=== PATIENT | female | born 1980 | race African-American/Black ===

== ENCOUNTER 2016-12-18 22:54 | Emergency (ER) | payer MEDICARE, MEDICAID ==
--- NOTE | 2016-12-18 23:56 | ER Document Report ---
ED General - General Chief Complaint: Decreased LOC Stated Complaint: ALTERED LEVEL OF CONSCIENCE Time seen by provider: 23:56 Mode of Arrival: Stretcher Information source: Emergency Med Personnel TRAVEL OUTSIDE OF THE [place] IN LAST 30 DAYS: No - HPI Patient complains to provider of: difficult to arouse Onset: Just prior to arrival Onset/Duration: Sudden Quality of pain: No pain Associated symptoms: None Exacerbated by: Denies Relieved by: Denies Similar symptoms previously: Yes Recently seen / treated by doctor: No Notes: Patient is a 36-year-old female presenting to the emergency room via EMS for difficulty to arouse with altered mental status, patient reports that she took one dose of all of her medications at the same time this evening and shortly thereafter became very sleepy, she takes Loprox, clobetasol, omeprazole, Nucynta , Topamax, Elavil, Valium, Cymbalta, she states the she is supposed to take a dose of all of these medications at night, and when she does so she sleeps quite heavily, she is supposed worsen sleep apnea at night as well, apparently her mother became concerned because she could not wake the patient, patient denies suicidal or homicidal ideation - Related Data Allergies/Adverse Reactions: latex [Latex] Allergy (Intermediate, Verified 06/08/16 07:12) SKIN IRRITATION, ITCHING Past Medical History - General Information source: Patient, Emergency Med Personnel - Social History Smoking Status: Unknown if Ever Smoked Family History: DM, Hypertension - Past Medical History Cardiac Medical History: Denies: Hx Coronary Artery Disease, Hx Heart Attack, Hx Hypertension Pulmonary Medical History: Reports: Hx Asthma Denies: Hx Bronchitis, Hx COPD, Hx Pneumonia Neurological Medical History: Denies: Hx Cerebrovascular Accident, Hx Seizures Endocrine Medical History: Denies: Hx Diabetes Mellitus Type 2 GI Medical History: Reports: Hx Gastroesophageal Reflux Disease, Hx Hiatal Hernia Musculoskeltal Medical History: Reports Hx Arthritis Past Surgical History: Reports: Hx Bowel Surgery - hernia, bowel obstruction, colectomy, Hx Gastric Bypass Surgery. Denies: Hx Hysterectomy - Immunizations Immunizations up to date: Yes Hx Diphtheria, Pertussis, Tetanus Vaccination: Yes - < 5 years Hx Pneumococcal Vaccination: 08/13/11 Review of Systems - Review of Systems Constitutional: No symptoms reported EENT: No symptoms reported Cardiovascular: No symptoms reported Respiratory: No symptoms reported Gastrointestinal: No symptoms reported Genitourinary: No symptoms reported Female Genitourinary: No symptoms reported Musculoskeletal: No symptoms reported Skin: No symptoms reported Hematologic/Lymphatic: No symptoms reported Neurological/Psychological: See HPI -: Yes All other systems reviewed and negative Physical Exam - Vital signs Vitals: Temp Pulse Resp BP Pulse Ox 97.8 F 107 H 22 H 132/72 H 100 12/18/16 23:04 12/18/16 23:04 12/18/16 23:04 12/18/16 23:04 12/18/16 23:04 Interpretation: Tachycardic - General General appearance: Other - Somnolent but arousable In distress: None - HEENT Head: Normocephalic, Atraumatic Eyes: Normal Conjunctiva: Normal Extraocular movements intact: Yes Eyelashes: Normal Pupils: PERRL Mucous membranes: Dry - Respiratory Respiratory status: No respiratory distress Chest status: Nontender Breath sounds: Normal Chest palpation: Normal - Cardiovascular Rhythm: Regular, Tachycardia Heart sounds: Normal auscultation Murmur: No - Abdominal Inspection: Morbidly Obese Distension: No distension Bowel sounds: Normal Tenderness: Nontender Organomegaly: No organomegaly - Back Back: Normal, Nontender - Extremities General upper extremity: Normal inspection, Nontender, Normal color, Normal ROM , Normal temperature General lower extremity: Normal inspection, Nontender, Normal color, Normal ROM , Normal temperature, Normal weight bearing. No: Lorena's sign - Neurological Neuro grossly intact: Yes Cognition: Normal Caryl Coma Scale Eye Opening: To Voice [place] Coma Scale Verbal: Oriented Caryl Coma Scale Motor: Obeys Commands [place] Coma Scale Total: 14 Speech: Normal Motor strength normal: LUE, RUE, LLE, RLE Sensory: Normal - Psychological Associated symptoms: Normal affect, Normal mood - Skin Skin Temperature: Warm Skin Moisture: Dry Skin Color: Normal Course - Re-evaluation Re-evalutation: 12/19/16 03:41 Patient is somnolent but arousable, vital signs have been stable, I believe her symptoms are related to polypharmacy, patient was advised to take her medications in the space out dosing rather than all at the same time at night, follow up with her primary care provider or return if symptoms worsen, patient acknowledges understanding and agreement with this plan - Vital Signs Vital signs: Temp Pulse Resp BP Pulse Ox 97.8 F 107 H 26 H 129/77 H 100 02/05/17 23:04 12/18/16 23:04 12/19/16 02:01 12/19/16 02:01 12/19/16 02:01 - Laboratory Result Diagrams: 12/19/16 00:20 12/19/16 00:20 Laboratory results interpreted by me: 12/19/16 12/19/16 12/19/16 00:20 00:20 01:20 Hgb 11.0 L Hct 34.0 L RDW 16.4 H Plt Count 105 L Alkaline Phosphatase 161 H Urine Urobilinogen 2.0 H Salicylates < 1.0 L Acetaminophen < 10 L Discharge - Discharge Clinical Impression: Somnolence, Polypharmacy Condition: Stable Disposition: HOME, SELF-CARE Additional Instructions: Follow up with your primary care provider in one to 2 days. Return to the emergency room immediately if symptoms worsen or any additional concerns.
[2016-12-19 00:29] LABS: ABSOLUTE EOSINOPHILS # (AUTO) 0.1 10^3/uL (0.0-0.6); ABSOLUTE MONOCYTES (AUTO) 0.6 10^3/uL (0.1-1.4); ABSOLUTE NEUT (AUTO) 4.3 10^3/uL (1.7-8.2); BASOPHILS % (AUTO) 0.7 % (0-2); EOSINOPHILS % (AUTO) 1.7 % (0-6); LYMPHOCYTES % (AUTO) 16.5 % (13-45); MEAN CORPUSCULAR HEMOGLOBIN 28.6 pg (27.0-33.4); MEAN CORPUSCULAR HGB CONC 32.4 g/dL (32.0-36.0); MEAN CORPUSCULAR VOLUME 88 fl (80-97); MONOCYTES % (AUTO) 9.5 % (3-13); RED BLOOD COUNT 3.86 10^6/uL (3.72-5.28); RED CELL DISTRIBUTION WIDTH 16.4 % (11.5-14.0); SEGMENTED NEUTROPHILS % (AUTO) 71.6 % (42-78)
[2016-12-19 00:41] LABS: ALANINE AMINOTRANSFERASE 31 U/L (9-52); ALBUMIN 3.8 g/dL (3.5-5.0); ALKALINE PHOSPHATASE 161 U/L (38-126); ANION GAP 12 (5-19); ASPARTATE AMINO TRANSFERASE 26 U/L (14-36); BILIRUBIN,TOTAL 0.4 mg/dL (0.2-1.3); BLOOD UREA NITROGEN 12 mg/dL (7-20); CALCIUM 8.5 mg/dL (8.4-10.2); CARBON DIOXIDE 22 mmol/L (22-30); CHLORIDE 107 mmol/L (98-107); CREATININE RESULT 0.68 mg/dL (0.52-1.25); GLUCOSE 101 mg/dL (75-110); POTASSIUM 3.6 mmol/L (3.6-5.0); SODIUM 140.8 mmol/L (137-145); TOTAL PROTEIN 6.6 g/dL (6.3-8.2)
[2016-12-19 00:44] LABS: ALCOHOL < 10 mg/dL (NONE DETECTED)
[2016-12-19 01:44] LABS: APPEARANCE,URINE SLIGHTLY-CLOUDY; BILIRUBIN,URINE NEGATIVE (NEGATIVE); GLUCOSE, URINE NEGATIVE (NEGATIVE); KETONES,URINE NEGATIVE (NEGATIVE); LEUKOCYTE ESTERASE,URINE NEGATIVE (NEGATIVE); NITRITE,URINE NEGATIVE (NEGATIVE); PROTEIN,URINE NEGATIVE (NEGATIVE); URINE SPECIFIC GRAVITY 1.019
[2016-12-19 01:59] LABS: URINE BARBITURATES SCREEN NEGATIVE; URINE METHADONE SCREEN NEGATIVE; URINE OPIATES LOW NEGATIVE; URINE PHENCYCLIDINE SCREEN NEGATIVE
[2016-12-19 04:31] VITALS: BP 148/91
== END 2016-12-19 05:10 | disposition home or self-care (01) ==
LOC: ER 22:54
DX: R41.82 Altered mental status, unspecified (principal); R40.0 Somnolence; Z91.040 Latex allergy status; Z79.899 Other long term (current) drug therapy; Z98.84 Bariatric surgery status
CPT/HCPCS: 36415; 80053; 80307; 81001; 84703; 85025; 99285

== ENCOUNTER → 2017-01-10 | Outpatient (CLI) | payer MEDICARE, MEDICAID | LOC: WI 08:29 | PROVIDERS: ATTEND Internal Medicine Medical Oncology | DX: N63 Unspecified lump in breast (principal) | CPT/HCPCS: 76641; G0204; 77066 ==

== ENCOUNTER → 2017-05-17 | Outpatient (CLI) | payer MEDICARE, MEDICAID ==
[2017-05-17 10:15] LABS: HEMATOCRIT 37.8 % (36.0-47.0); HEMOGLOBIN 11.8 g/dL (12.0-15.5); HGB HCT DIFFERENCE -2.4; MEAN CORPUSCULAR HEMOGLOBIN 26.9 pg (27.0-33.4); MEAN CORPUSCULAR HGB CONC 31.1 g/dL (32.0-36.0); MEAN CORPUSCULAR VOLUME 87 fl (80-97); RED BLOOD COUNT 4.37 10^6/uL (3.72-5.28); RED CELL DISTRIBUTION WIDTH 17.6 % (11.5-14.0)
[2017-05-17 10:34] LABS: ALANINE AMINOTRANSFERASE 42 U/L (9-52); ALBUMIN 3.7 g/dL (3.5-5.0); ALKALINE PHOSPHATASE 150 U/L (38-126); ANION GAP 8 (5-19); ASPARTATE AMINO TRANSFERASE 25 U/L (14-36); BILIRUBIN,DIRECT 0.3 mg/dL (0.0-0.4); BILIRUBIN,TOTAL 0.4 mg/dL (0.2-1.3); BLOOD UREA NITROGEN 8 mg/dL (7-20); CALCIUM 8.6 mg/dL (8.4-10.2); CARBON DIOXIDE 28 mmol/L (22-30); CHLORIDE 103 mmol/L (98-107); CREATININE RESULT 0.69 mg/dL (0.52-1.25); GLUCOSE 92 mg/dL (75-110); POTASSIUM 4.9 mmol/L (3.6-5.0); SODIUM 139.4 mmol/L (137-145); TOTAL PROTEIN 7.3 g/dL (6.3-8.2)
== END ==
LOC: OD 08:49
PROVIDERS: ATTEND Obstetrics & Gynecology
DX: Z90.49 Acquired absence of other specified parts of digestive tract (principal); I10 Essential (primary) hypertension; R60.0 Localized edema
CPT/HCPCS: 36415; 80053; 85027

== ENCOUNTER 2017-06-02 12:25 | Emergency (ER) | payer MEDICARE, MEDICAID ==
[2017-06-02 12:32] VITALS: BP 133/85
[2017-06-02] MEDS ORDERED: SULFAMETHOXAZOLE/TRIMETHOPRIM 800-160 MG TABLET PO ONE (13:08)
--- NOTE | 2017-06-02 13:08 | ER Document Report ---
ED Medical Screen (RME) - General Chief Complaint: Leg Pain Stated Complaint: POSSIBLE LEG INJURY Time Seen by Provider: 06/02/17 13:00 Mode of Arrival: Ambulatory Information source: Patient Notes: Patient is a 37-year-old female who presents to the ER today for open wound to her left leg in between two rolls of "lymphedema fat" per pt. She states it has been present for 1 week, she has been trying to keep it clean but states that it is "right in the fold and is hard to keep clean." She admits to some drainage of pus from the wound. She has not seen anybody for this. Pt is 188kg. She denies fevers or chills. TRAVEL OUTSIDE OF THE [place] IN LAST 30 DAYS: No - Related Data Allergies/Adverse Reactions: latex [Latex] Allergy (Intermediate, Verified 06/02/17 12:31) SKIN IRRITATION, ITCHING Past Medical History - General Information source: Patient - Social History Chew tobacco use (# tins/day): No Frequency of alcohol use: None Drug Abuse: None - Past Medical History Cardiac Medical History: Denies: Hx Coronary Artery Disease, Hx Heart Attack, Hx Hypertension Pulmonary Medical History: Reports: Hx Asthma Denies: Hx Bronchitis, Hx COPD, Hx Pneumonia Neurological Medical History: Denies: Hx Cerebrovascular Accident, Hx Seizures Endocrine Medical History: Denies: Hx Diabetes Mellitus Type 2 Renal/ Medical History: Denies: Hx Peritoneal Dialysis GI Medical History: Reports: Hx Gastroesophageal Reflux Disease, Hx Hiatal Hernia Musculoskeltal Medical History: Reports Hx Arthritis Past Surgical History: Reports: Hx Bowel Surgery - hernia, bowel obstruction, colectomy, Hx Cholecystectomy, Hx Gastric Bypass Surgery. Denies: Hx Hysterectomy - Immunizations Immunizations up to date: Yes Hx Diphtheria, Pertussis, Tetanus Vaccination: Yes - < 5 years Review of Systems - Review of Systems Constitutional: No symptoms reported EENT: No symptoms reported Cardiovascular: No symptoms reported Respiratory: No symptoms reported Gastrointestinal: No symptoms reported Genitourinary: No symptoms reported Female Genitourinary: No symptoms reported Musculoskeletal: No symptoms reported Skin: See HPI Hematologic/Lymphatic: No symptoms reported Neurological/Psychological: No symptoms reported Physical Exam - Vital signs Vitals: Temp Pulse Resp BP Pulse Ox 98.6 F 97 18 133/85 H 100 06/02/17 12:30 06/02/17 12:30 06/02/17 12:30 06/02/17 12:30 06/02/17 12:30 - Notes Notes: PHYSICAL EXAMINATION: GENERAL: Well-appearing, morbidly obese, and in no acute distress. HEAD: Atraumatic, normocephalic. EYES: Pupils equal round and reactive to light, extraocular movements intact, sclera anicteric, conjunctiva are normal. ENT: ear canals without erythema or foreign body, TMs pearly bishop with good bony landmarks, nares patent, oropharynx clear without exudates. Moist mucous membranes. NECK: Normal range of motion, supple without lymphadenopathy LUNGS: CTAB and equal. No wheezes rales or rhonchi. HEART: Regular rate and rhythm without murmurs ABDOMEN: Soft, no tenderness. No guarding, no rebound BACK: no vertebral tenderness, normal ROM GI/: no CVA tenderness EXTREMITIES: Normal range of motion, no pitting edema. No cyanosis. NEUROLOGICAL: Cranial nerves grossly intact. Normal sensory/motor exams. PSYCH: Normal mood, normal affect. SKIN: Warm, Dry, normal turgor, 5cm open linear wound to skin fold in left lower extremity medially, no surrounding erythema, some purulent drainage Course - Re-evaluation Re-evalutation: 06/03/17 09:54 Wound looks like it is from a crack in the skin from the skin being very taut because of patient's body habitus. Patient did not want to stay for any lab work, refused any further evaluation but wanted to go home with medication. I did discharge her home with antibiotics and advised her to return if symptoms worsen. I also advised to follow-up with her primary care provider. - Vital Signs Vital signs: Temp Pulse Resp BP Pulse Ox 98.6 F 97 18 133/85 H 100 06/02/17 12:30 06/02/17 12:30 06/02/17 12:30 06/02/17 12:30 06/02/17 12:30 Doctor's Discharge - Discharge Clinical Impression: Open wound Condition: Stable Disposition: HOME, SELF-CARE Additional Instructions: Return immediately for any new or worsening symptoms. Follow up with primary care provider, call tomorrow to make followup appointment. Prescriptions: Sulfamethoxazole/Trimethoprim [Bactrim Ds Tablet] 1 each PO BID #20 tablet Referrals: Wound Care [Provider Group] - Follow up as needed
== END 2017-06-02 13:52 | disposition home or self-care (01) ==
LOC: ER 12:25
DX: S81.802A Unspecified open wound, left lower leg, initial encounter (principal); X58.XXXA Exposure to other specified factors, initial encounter; Z91.040 Latex allergy status; E66.01 Morbid (severe) obesity due to excess calories; Z68.45 Body mass index [BMI] 70 or greater, adult; Z90.49 Acquired absence of other specified parts of digestive tract; Z98.84 Bariatric surgery status
CPT/HCPCS: 99283; A9270

== ENCOUNTER 2017-06-15 08:49 | Outpatient (CLI) | payer MEDICARE, MEDICAID ==
[~2017-06-15 08:49] MED LIST: ACETAMINOPHEN 325 MG TABLET PO PRN; DIPHENHYDRAMINE HCL 50 MG/ML VIAL IV PRN; FAMOTIDINE INJ/PF 20 MG/2 ML SDV IV PRN; IRON DEXTRAN COMPLEX IV PRN; METHYLPREDNISOLONE INJ 125 MG/2 ML SDV IV PRN; NORMAL SALINE 250 ML IV PRN; NORMAL SALINE IV PRN
[2017-06-15 09:26] VITALS: BP 146/78
[2017-06-15] MEDS ORDERED: NORMAL SALINE 250 ML IV PRN (09:29)
[2017-06-15] MEDS: IRON DEXTRAN COMPLEX 25 MG in SYRINGE, DISPOSABLE, 1 EACH IV PRN ×2 (09:50→10:05)
== END 2017-06-15 13:52 | disposition home or self-care (01) ==
LOC: II 08:49 → 5TH 08:54 → II 13:52
PROVIDERS: ATTEND Internal Medicine Medical Oncology
PROC: 3E043GC Introduction of Other Therapeutic Substance into Central Vein, Percutaneous Approach (ICD-10-PCS; principal; 2017-06-15)
PROC: 3E0433Z Introduction of Anti-inflammatory into Central Vein, Percutaneous Approach (ICD-10-PCS; 2017-06-15)
DX: R79.0 Abnormal level of blood mineral (principal); D50.0 Iron deficiency anemia secondary to blood loss (chronic); D64.9 Anemia, unspecified
CPT/HCPCS: 96365; 96366; 96374; 96375; 96360; 96523; A9270; J1200; J1750; J2930; J7040; J3490; S0028; 96361; 96367

== ENCOUNTER 2017-07-13 13:15 | Emergency (ER) | payer MEDICARE, MEDICAID ==
--- NOTE | 2017-07-13 13:52 | ER Document Report ---
ED Medical Screen (RME) - General Chief Complaint: Other Stated Complaint: KNEE AND BACK PAIN,SLURRED SPEECH Time Seen by Provider: 07/13/17 13:50 Mode of Arrival: Wheelchair Information source: Patient Notes: This is a 32 arthritis who presents to the emergency room with diffuse bone and joint pain. The patient is followed by Dr. Tellez as well as pain management. She is on a number of medicines. The patient lives with her family and she has family members that are concerned that she is taking too many medicines. Patient does appear lethargic in triage. TRAVEL OUTSIDE OF THE [place] IN LAST 30 DAYS: No - Related Data Allergies/Adverse Reactions: latex [Latex] Allergy (Intermediate, Verified 07/13/17 13:21) SKIN IRRITATION, ITCHING Past Medical History - Social History Chew tobacco use (# tins/day): No Frequency of alcohol use: None Drug Abuse: None - Past Medical History Cardiac Medical History: Denies: Hx Coronary Artery Disease, Hx Heart Attack, Hx Hypertension Pulmonary Medical History: Reports: Hx Asthma Denies: Hx Bronchitis, Hx COPD, Hx Pneumonia Neurological Medical History: Denies: Hx Cerebrovascular Accident, Hx Seizures Endocrine Medical History: Denies: Hx Diabetes Mellitus Type 2 Renal/ Medical History: Denies: Hx Peritoneal Dialysis GI Medical History: Reports: Hx Gastroesophageal Reflux Disease, Hx Hiatal Hernia Musculoskeltal Medical History: Reports Hx Arthritis Past Surgical History: Reports: Hx Bowel Surgery - hernia, bowel obstruction, colectomy, Hx Cholecystectomy, Hx Gastric Bypass Surgery. Denies: Hx Hysterectomy - Immunizations Immunizations up to date: Yes Hx Diphtheria, Pertussis, Tetanus Vaccination: Yes - < 5 years Physical Exam - Vital signs Vitals: Temp Pulse Resp BP Pulse Ox 98.4 F 111 H 28 H 133/88 H 96 07/13/17 13:16 07/13/17 13:16 07/13/17 13:16 07/13/17 13:16 07/13/17 13:16 Course - Vital Signs Vital signs: Temp Pulse Resp BP Pulse Ox 98.4 F 111 H 28 H 133/88 H 96 07/13/17 13:16 07/13/17 13:16 07/13/17 13:16 07/13/17 13:16 07/13/17 13:16
[2017-07-13] MEDS ORDERED: KETOROLAC TROMETHAMINE 60 MG/2 ML SDV IM ONE (13:53)
[2017-07-13 14:29] LABS: ABSOLUTE EOSINOPHILS # (AUTO) 0.1 10^3/uL (0.0-0.6); ABSOLUTE LYMPHOCYTES (AUTO) 1.8 10^3/uL (0.5-4.7); ABSOLUTE MONOCYTES (AUTO) 0.5 10^3/uL (0.1-1.4); ABSOLUTE NEUT (AUTO) 2.3 10^3/uL (1.7-8.2); BASOPHILS % (AUTO) 0.7 % (0-2); EOSINOPHILS % (AUTO) 2.7 % (0-6); HEMATOCRIT 39.3 % (36.0-47.0); HEMOGLOBIN 12.8 g/dL (12.0-15.5); HGB HCT DIFFERENCE -0.9; LYMPHOCYTES % (AUTO) 37.3 % (13-45); MEAN CORPUSCULAR HEMOGLOBIN 28.5 pg (27.0-33.4); MEAN CORPUSCULAR HGB CONC 32.5 g/dL (32.0-36.0); MEAN CORPUSCULAR VOLUME 88 fl (80-97); MONOCYTES % (AUTO) 10.3 % (3-13); RED BLOOD COUNT 4.47 10^6/uL (3.72-5.28); RED CELL DISTRIBUTION WIDTH 19.1 % (11.5-14.0); WHITE BLOOD COUNT 4.7 10^3/uL (4.0-10.5)
[2017-07-13 14:48] LABS: ALANINE AMINOTRANSFERASE 38 U/L (9-52); ALBUMIN 4.3 g/dL (3.5-5.0); ALKALINE PHOSPHATASE 153 U/L (38-126); ANION GAP 12 (5-19); ASPARTATE AMINO TRANSFERASE 21 U/L (14-36); BILIRUBIN,DIRECT 0.4 mg/dL (0.0-0.4); BILIRUBIN,TOTAL 0.5 mg/dL (0.2-1.3); BLOOD UREA NITROGEN 12 mg/dL (7-20); CALCIUM 9.5 mg/dL (8.4-10.2); CARBON DIOXIDE 20 mmol/L (22-30); CHLORIDE 109 mmol/L (98-107); CREATININE RESULT 0.85 mg/dL (0.52-1.25); GLUCOSE 105 mg/dL (75-110); POTASSIUM 4.8 mmol/L (3.6-5.0); SODIUM 141.1 mmol/L (137-145); TOTAL PROTEIN 8.1 g/dL (6.3-8.2)
[2017-07-13 16:05] LABS: APPEARANCE,URINE CLOUDY; BILIRUBIN,URINE NEGATIVE (NEGATIVE); GLUCOSE, URINE NEGATIVE (NEGATIVE); KETONES,URINE NEGATIVE (NEGATIVE); LEUKOCYTE ESTERASE,URINE NEGATIVE (NEGATIVE); NITRITE,URINE NEGATIVE (NEGATIVE); PROTEIN,URINE NEGATIVE (NEGATIVE); URINE SPECIFIC GRAVITY 1.026; UROBILINOGEN,URINE NEGATIVE mg/dL (<2.0)
[2017-07-13 16:15] LABS: URINE BARBITURATES SCREEN NEGATIVE; URINE METHADONE SCREEN NEGATIVE; URINE OPIATES LOW UNCONFIRMED POSITIVE; URINE PHENCYCLIDINE SCREEN NEGATIVE
--- NOTE | 2017-07-13 16:21 | ER Document Report ---
ED General - General Chief Complaint: Other Stated Complaint: KNEE AND BACK PAIN,SLURRED SPEECH Time Seen by Provider: 07/13/17 13:50 Mode of Arrival: Wheelchair Information source: Patient TRAVEL OUTSIDE OF THE [place] IN LAST 30 DAYS: No - HPI Patient complains to provider of: Increased sleep, slurred speech, oversedated after taking medications Onset/Duration: Intermittent Associated symptoms: None Exacerbated by: Denies Relieved by: Denies Notes: Patient is a 37-year-old female who presents to the emergency room on advice of family members for complaints of slurred speech, increased sleep, symptoms usually occur after she takes her medication, she reports that she takes a lot of pain medication as well as medication for her "nerves", family members at bedside confirmed that patient is a schizophrenic and takes mental health related medications as well, patient denies any symptoms at present time, she is ambulating throughout the department but does immediately fall asleep when she lays down on the bed, patient's mother and other family member at bedside reports that she is forgetful and is likely taking too much of her medications - Related Data Allergies/Adverse Reactions: latex [Latex] Allergy (Intermediate, Verified 07/13/17 13:21) SKIN IRRITATION, ITCHING Past Medical History - General Information source: Patient - Social History Smoking Status: Never Smoker Chew tobacco use (# tins/day): No Frequency of alcohol use: None Drug Abuse: None Family History: DM, Hypertension - Past Medical History Cardiac Medical History: Denies: Hx Coronary Artery Disease, Hx Heart Attack, Hx Hypertension Pulmonary Medical History: Reports: Hx Asthma Denies: Hx Bronchitis, Hx COPD, Hx Pneumonia Neurological Medical History: Denies: Hx Cerebrovascular Accident, Hx Seizures Endocrine Medical History: Denies: Hx Diabetes Mellitus Type 2 Renal/ Medical History: Denies: Hx Peritoneal Dialysis GI Medical History: Reports: Hx Gastroesophageal Reflux Disease, Hx Hiatal Hernia Musculoskeltal Medical History: Reports Hx Arthritis Past Surgical History: Reports: Hx Bowel Surgery - hernia, bowel obstruction, colectomy, Hx Cholecystectomy, Hx Gastric Bypass Surgery. Denies: Hx Hysterectomy - Immunizations Immunizations up to date: Yes Hx Diphtheria, Pertussis, Tetanus Vaccination: Yes - < 5 years Hx Pneumococcal Vaccination: 08/13/11 Review of Systems - Review of Systems Constitutional: See HPI EENT: No symptoms reported Cardiovascular: No symptoms reported Respiratory: No symptoms reported Gastrointestinal: No symptoms reported Genitourinary: No symptoms reported Female Genitourinary: No symptoms reported Musculoskeletal: No symptoms reported Skin: No symptoms reported Hematologic/Lymphatic: No symptoms reported Neurological/Psychological: No symptoms reported -: Yes All other systems reviewed and negative Physical Exam - Vital signs Vitals: Temp Pulse Resp BP Pulse Ox 98.4 F 111 H 28 H 133/88 H 96 07/13/17 13:16 07/13/17 13:16 07/13/17 13:16 07/13/17 13:16 07/13/17 13:16 Interpretation: Normal - General General appearance: Appears well, Alert - HEENT Head: Normocephalic, Atraumatic Eyes: Normal Pupils: PERRL - Respiratory Respiratory status: No respiratory distress Chest status: Nontender Breath sounds: Normal Chest palpation: Normal - Cardiovascular Rhythm: Regular Heart sounds: Normal auscultation Murmur: No - Abdominal Inspection: Normal Distension: No distension Bowel sounds: Normal Tenderness: Nontender Organomegaly: No organomegaly - Back Back: Normal, Nontender - Extremities General upper extremity: Normal inspection, Nontender, Normal color, Normal ROM , Normal temperature General lower extremity: Normal inspection, Nontender, Normal color, Normal ROM , Normal temperature, Normal weight bearing. No: Lorena's sign - Neurological Neuro grossly intact: Yes Cognition: Normal Orientation: AAOx4 [place]cer Coma Scale Eye Opening: Spontaneous [place] Coma Scale Verbal: Oriented [place] Coma Scale Motor: Obeys Commands [place] Coma Scale Total: 15 Speech: Normal Motor strength normal: LUE, RUE, LLE, RLE Sensory: Normal - Psychological Associated symptoms: Normal affect, Normal mood - Skin Skin Temperature: Warm Skin Moisture: Dry Skin Color: Normal Course - Re-evaluation Re-evalutation: 07/13/17 16:59 Patient has been awake and alert and ambulating without difficulty, she does appear slightly sedated at times, easily falling asleep when she lays down on the bed, she is responsive to verbal stimuli, family members confirm that patient is forgetful and likely taking too many of her medications throughout the day, mother was at bedside and patient does live with mother, I suggested that patient's mother control her medications to ensure that she is taking it only as prescribed, patient's mother is agreeable to this plan, physical exam findings are otherwise unremarkable as are lab findings, therefore patient was discharged with instructions for follow-up and advised to return if any additional concerns, patient and family members acknowledge understanding and agreement with this plan - Vital Signs Vital signs: Temp Pulse Resp BP Pulse Ox 97.8 F 86 20 116/85 97 07/13/17 16:39 07/13/17 16:39 07/13/17 16:39 07/13/17 16:39 07/13/17 16:39 - Laboratory Result Diagrams: 07/13/17 14:00 07/13/17 14:00 Laboratory results interpreted by me: 07/13/17 07/13/17 14:00 14:00 RDW 19.1 H Plt Count 126 L Chloride 109 H Carbon Dioxide 20 L Alkaline Phosphatase 153 H Discharge - Discharge Clinical Impression: Medication side effects Qualifiers: Encounter type: initial encounter Qualified Code(s): T88.7XXA - Unspecified adverse effect of drug or medicament, initial encounter Condition: Stable Disposition: HOME, SELF-CARE Instructions: Medication Side Effects ([facility]) Additional Instructions: It is appears as though your medications are over sedating causing you to have slurred speech and sleep increasingly, it is important for you to follow-up with your primary care provider to have adjustments made to these medications. Return to the emergency room if any additional concerns
[2017-07-13 16:43] VITALS: BP 116/85
== END 2017-07-13 16:42 | disposition home or self-care (01) ==
LOC: ER 13:15
DX: T88.7XXA Unspecified adverse effect of drug or medicament, initial encounter (principal); R47.81 Slurred speech; M54.9 Dorsalgia, unspecified; F20.9 Schizophrenia, unspecified; M25.569 Pain in unspecified knee; X58.XXXA Exposure to other specified factors, initial encounter
CPT/HCPCS: 99283; 96372; 36415; 85025; 80053; 81001; 80307; J1885

== ENCOUNTER → 2017-12-01 | Outpatient (CLI) | payer MEDICARE, MEDICAID ==
--- NOTE | 2017-12-01 11:16 | RADIOLOGY REPORT (SQ) ---
EXAM DESCRIPTION: SHOULDER RIGHT 2 OR MORE VIEWS COMPLETED DATE/TIME: 12/01/2017 10:52 am REASON FOR STUDY: PAIN WITH ROM RIGHT SHOULDER, S/P FALL COMPARISON: None. NUMBER OF VIEWS: Three views. TECHNIQUE: Internal rotation, external rotation, and Y view images acquired of the right shoulder. LIMITATIONS: None. FINDINGS: MINERALIZATION: Normal. BONES: No acute fracture or dislocation. No worrisome bone lesions. JOINTS: No dislocation. VISUALIZED LUNGS AND RIBS: No pneumothorax. No rib fracture. SOFT TISSUES: No radiopaque foreign body. OTHER: Port-A-Cath is identified projected in the right upper hemithorax with its tip projected at th e level of the superior vena cava IMPRESSION: NEGATIVE STUDY OF THE RIGHT SHOULDER. NO RADIOGRAPHIC EVIDENCE OF ACUTE INJURY. TECHNICAL DOCUMENTATION: JOB ID: [id number] [employer]- All Rights Reserved
[2017-12-01 12:54] LABS: HEMATOCRIT 36.5 % (36.0-47.0); HEMOGLOBIN 11.9 g/dL (12.0-15.5); MEAN CORPUSCULAR HEMOGLOBIN 29.2 pg (27.0-33.4); MEAN CORPUSCULAR HGB CONC 32.5 g/dL (32.0-36.0); MEAN CORPUSCULAR VOLUME 90 fl (80-97); PLATELET COUNT 112 10^3/uL (150-450); RED BLOOD COUNT 4.06 10^6/uL (3.72-5.28); RED CELL DISTRIBUTION WIDTH 16.4 % (11.5-14.0); WHITE BLOOD COUNT 3.1 10^3/uL (4.0-10.5)
[2017-12-01 13:14] LABS: ALANINE AMINOTRANSFERASE 27 U/L (9-52); ALBUMIN 3.9 g/dL (3.5-5.0); ALKALINE PHOSPHATASE 139 U/L (38-126); ANION GAP 9 (5-19); ASPARTATE AMINO TRANSFERASE 23 U/L (14-36); BILIRUBIN,DIRECT 0.2 mg/dL (0.0-0.4); BILIRUBIN,TOTAL 0.2 mg/dL (0.2-1.3); BLOOD UREA NITROGEN 9 mg/dL (7-20); CARBON DIOXIDE 25 mmol/L (22-30); CHLORIDE 109 mmol/L (98-107); GLUCOSE 85 mg/dL (75-110); POTASSIUM 4.7 mmol/L (3.6-5.0); SODIUM 142.6 mmol/L (137-145); TOTAL PROTEIN 7.3 g/dL (6.3-8.2)
== END ==
LOC: OD 10:37
PROVIDERS: ATTEND Obstetrics & Gynecology
DX: M25.511 Pain in right shoulder (principal); Z91.81 History of falling; D69.6 Thrombocytopenia, unspecified; Z51.81 Encounter for therapeutic drug level monitoring; Z79.899 Other long term (current) drug therapy
CPT/HCPCS: 36415; 80053; 85027

== ENCOUNTER → 2018-04-10 | Outpatient (CLI) | payer MEDICARE, MEDICAID ==
--- NOTE | 2018-04-13 08:03 | WOMENS IMAGING REPORT ---
EXAM DESCRIPTION: 3D DX MAMMO BILAT COMPLETED DATE/TIME: 04/10/2018 10:32 am REASON FOR STUDY: MASTODYNIA N64.4 MASTODYNIA N63.0 UNSPECIFIED LUMP IN UNSPECIFIED BREAST COMPARISON: Mammograms 01/10/2017 TECHNIQUE: Standard craniocaudal and mediolateral oblique views of each breast recorded using digita l acquisition and breast tomosynthesis. Bilateral 90 mediolateral views were obtained. Patient refused breast ultrasound bilaterally LIMITATIONS: None. FINDINGS: RIGHT BREAST MASSES: No suspicious masses. CALCIFICATIONS: No new or suspicious calcifications. ARCHITECTURAL DISTORTION: None. DEVELOPING DENSITY: None. ASYMMETRY: None noted. OTHER: No other significant findings. LEFT BREAST MASSES: No suspicious masses. CALCIFICATIONS: No new or suspicious calcifications. ARCHITECTURAL DISTORTION: None. DEVELOPING DENSITY: None. ASYMMETRY: None noted. OTHER: No other significant finding. Read with the assistance of CAD: .[facility] - R2 [employer] Version 1.3 .[facility] - R2 Cenova Version 1.3 .[facility] - R2 Cenova Version 2.4 .[facility] [place] Cenova Version 2.4 .[facility] - R2 [employer] Version 9.2 IMPRESSION: No mammographic/ tomosynthesis evidence for malignancy bilaterally BREAST DENSITY: a. The breasts are almost entirely fatty. BIRAD: 1 Negative. RECOMMENDATION: RECOMMENDED FOLLOW UP: Clinical followup for breast pain. If breast pain continues, ultrasound is recommended. Otherwise, please continue yearly bilateral screening mammography/ tomos ynthesis in April 2019. SPECIFIC INTERVENTION/IMAGING/CONSULTATION RECOMMENDED:No additional intervention/ imaging/consultati on needed at this time. COMMUNICATION:The negative/benign results were communicated to the patient. COMMENT: The patient has been notified of the results by letter per SA requirements. Additional no tification policies are in place for contacting patient with suspicious or incomplete findings. Quality ID #[id number]: The [employer] recommends an annual screening mammogram for women aged 40 years or over. This facility utilizes a reminder system to ensure that all patients receive reminder letters, and/or direct phone calls for appointments. This includes reminders for routine scr eening mammograms, diagnostic mammograms, or other Breast Imaging Interventions when appropriate. Th is patient will be placed in the appropriate reminder system. The [employer] (ACR) has developed recommendations for screening MRI of the breast s in certain patient populations, to be used in conjunction with mammography. Breast MRI surveillanc e may be appropriate for women with more than 20% lifetime risk of developing breast cancer as deter mined by genetic testing, significant family history of the disease, or history of mantle radiation f or Hodgkins Disease. ACR Practice Guidelines 2008. DBT Technology DBT is a type of tomographic mammography. With conventional mammography, overlapping breast tissue ma y make lesions difficult to detect, even with good compression. DBT uses an x-ray tube that rotates a round the breast, taking images at different angles. These images are then combined to create thin sl ices of the breast that the radiologist can view as a 3D reconstruction. The [employer] unit can perform full-field digital mammograms (2D imaging); or DBT (3D imaging); or both, in a combination mode that quickly performs both the mammogram and the tomosynthesis scan while the breast is still compressed. PQRS 6045F: Fluoroscopic imaging is not utilized for breast tomosynthesis. TECHNICAL DOCUMENTATION: FINDING NUMBER: (1) ASSESSMENT: (1) JOB ID: [id number] [employer]- All Rights Reserved Reading location - IP/workstation name: [email or web address]
== END ==
LOC: WI 08:30
PROVIDERS: ATTEND Obstetrics & Gynecology
DX: N64.4 Mastodynia (principal); N63.0 Unspecified lump in unspecified breast
CPT/HCPCS: 77066; G0279; 77062

== ENCOUNTER → 2018-10-22 | Outpatient (CLI) | payer MEDICARE, MEDICAID ==
--- NOTE | 2018-10-22 09:27 | RADIOLOGY REPORT (SQ) ---
EXAM DESCRIPTION: CHEST PA/LATERAL COMPLETED DATE/TIME: 10/22/2018 9:16 am REASON FOR STUDY: L SIDED CHEST PAIN COMPARISON: 04/25/2016 EXAM PARAMETERS: NUMBER OF VIEWS: two views TECHNIQUE: Digital Frontal and Lateral radiographic views of the chest acquired. RADIATION DOSE: NA LIMITATIONS: none FINDINGS: LUNGS AND PLEURA: No opacities, masses or pneumothorax. No pleural effusion. MEDIASTINUM AND HILAR STRUCTURES: No masses or contour abnormalities. HEART AND VASCULAR STRUCTURES: Heart normal size. No evidence for failure. BONES: No acute findings. HARDWARE: Orhuso-M-Lsii remains in place. OTHER: No other significant finding. IMPRESSION: NO SIGNIFICANT RADIOGRAPHIC FINDING IN THE CHEST. TECHNICAL DOCUMENTATION: JOB ID: [id number] [employer]- All Rights Reserved Reading location - IP/workstation name: [email or web address]
--- NOTE | 2018-10-22 09:29 | RADIOLOGY REPORT (SQ) ---
EXAM DESCRIPTION: RIBS LEFT W/O PA CHEST COMPLETED DATE/TIME: 10/22/2018 9:16 am REASON FOR STUDY: L SIDED CHEST PAIN R07.89 OTHER CHEST PAIN COMPARISON: None. NUMBER OF VIEWS: Five views. TECHNIQUE: Images acquired of the left ribs in the area of focal concern. LIMITATIONS: None. FINDINGS: RIBS: No acute displaced fracture. No worrisome bone lesions. LUNGS: Limited exam. No obvious pneumothorax. No pleural effusion. OTHER: No other significant finding. IMPRESSION: NO ACUTE DISPLACED RIB FRACTURE. COMMENT: SITE OF TRAUMA/COMPLAINT MARKED/STAMP COMPLETED: YES. TECHNICAL DOCUMENTATION: JOB ID: [id number] [employer]- All Rights Reserved Reading location - IP/workstation name: [email or web address]
== END ==
LOC: OD 08:51
PROVIDERS: ATTEND Obstetrics & Gynecology
DX: R07.89 Other chest pain (principal)
CPT/HCPCS: 71046

== ENCOUNTER 2019-02-28 17:21 | Emergency (ER) | payer MEDICARE, MEDICAID ==
[2019-02-28] MEDS ORDERED: DEXAMETHASONE SOD PHOS INJ 10 MG/1 ML VIAL IM ONE (19:36)
[2019-02-28] MEDS ORDERED: KETOROLAC TROMETHAMINE 60 MG/2 ML SDV IM ONE (19:36)
--- NOTE | 2019-02-28 19:39 | ER Document Report ---
HPI - HPI Time Seen by Provider: 02/28/19 19:24 Pain Level: 3 Context: Patient is a 39-year-old morbidly obese female who presents emergency department after a fall. She was walking up her steps and was at the very top step and hit her head on the ground in and hit her left hip and back. Denies any loss of consciousness, weakness, dizziness, or any severe pain. She is able to like normal. She states that she did need help up and had to help walking at the time, but is walking normal now. Past medical history includes arthritis, chronic back pain. She has not taken any medication for the pain. She was recently prescribed Percocet about a week ago. - NEURO Neurology: REPORTS: Headache. DENIES: Weakness, Vision blurred, Dizzinesss / Vertigo - CARDIOVASCULAR Cardiovascular: DENIES: Chest pain - RESPIRATORY Respiratory: DENIES: Trouble Breathing, Coughing - GASTROINTESTINAL Gastrointestinal: DENIES: Abdominal Pain, Nausea, Patient vomiting, Diarrhea - REPRODUCTIVE Reproductive: DENIES: : - MUSCULOSKELETAL Musculoskeletal: REPORTS: Extremity pain - DERM Skin Color: Normal Skin Problems: None Past Medical History - Social History Smoking Status: Never Smoker Frequency of alcohol use: None Drug Abuse: None Family History: DM, Hypertension Patient has suicidal ideation: No Patient has homicidal ideation: No - Past Medical History Cardiac Medical History: Denies: Hx Coronary Artery Disease, Hx Heart Attack, Hx Hypertension Pulmonary Medical History: Reports: Hx Asthma Denies: Hx Bronchitis, Hx COPD, Hx Pneumonia Neurological Medical History: Denies: Hx Cerebrovascular Accident, Hx Seizures Endocrine Medical History: Denies: Hx Diabetes Mellitus Type 2 Renal/ Medical History: Denies: Hx Peritoneal Dialysis GI Medical History: Reports: Hx Gastroesophageal Reflux Disease, Hx Hiatal Hernia Musculoskeletal Medical History: Reports Hx Arthritis Past Surgical History: Reports: Hx Bowel Surgery - hernia, bowel obstruction, colectomy, Hx Cholecystectomy, Hx Gastric Bypass Surgery. Denies: Hx Hysterectomy - Immunizations Immunizations up to date: Yes Hx Diphtheria, Pertussis, Tetanus Vaccination: Yes - < 5 years Hx Pneumococcal Vaccination: 08/13/11 Vertical Provider Document - CONSTITUTIONAL Agree With Documented VS: Yes Exam Limitations: No Limitations - INFECTION CONTROL TRAVEL OUTSIDE OF THE [place] IN LAST 30 DAYS: No - HEENT HEENT: Atraumatic, Normocephalic - NECK Neck: Normal Inspection - RESPIRATORY Respiratory: Breath Sounds Normal, No Respiratory Distress - CARDIOVASCULAR Cardiovascular: Regular Rate, Regular Rhythm Pulses: Normal: Brachial - GI/ABDOMEN Gastrointestinal: Abdomen Soft, Abdomen Non-Tender - BACK Back: Normal Inspection - MUSCULOSKELETAL/EXTREMETIES Musculoskeletal/Extremeties: FROM, Tender - mildly tender back, - NEURO Level of Consciousness: Awake, Alert, Appropriate Motor/Sensory: No Motor Deficit, No Sensory Deficit Deep Tendon Reflexes: 2+ - DERM Integumentary: Warm, Dry Course - Re-evaluation Re-evalutation: 02/28/19 20:06 Patient is able to walk with no difficulty. On the way the person is walking, is the way she states she normally walks. Films are not indicated at this time. She does have tenderness to her back, which is her normal tenderness from her chronic back pain. I had a lengthy conversation with the patient about her obesity and how it is very important for her to lose weight. She verbalized understanding. I do not suspect patient has any life-threatening etiology at this time. A CT of the head and facial bones are not indicated at this time. I had pressed rather hard on the patient's head and face, and there was no tenderness noted. Verbal discharge instructions were given to the patient. They verbalized understanding. They are stable for discharge. - Vital Signs Vital signs: Temp Pulse Resp BP Pulse Ox 98.1 F 100 20 143/86 H 98 02/28/19 18:05 02/28/19 18:05 02/28/19 18:05 02/28/19 18:05 02/28/19 18:05 Discharge - Discharge Clinical Impression: Fall Qualifiers: Encounter type: initial encounter Qualified Code(s): W19.XXXA - Unspecified fall, initial encounter Condition: Stable Disposition: HOME, SELF-CARE Additional Instructions: You were seen today in the emergency department after a fall. Please follow-up with your primary care provider in regards to this visit. You were given Toradol and Decadron here in the emergency department to help with your pain. If you are unable to walk, or have any symptoms that are worrisome to you, please return to the emergency department. Referrals: JOSIE ROSLAES MD [Primary Care Provider] - Follow up in 3-5 days
[2019-02-28 20:27] VITALS: BP 139/86
== END 2019-02-28 20:27 | disposition home or self-care (01) ==
LOC: ER 17:21
DX: M54.9 Dorsalgia, unspecified (principal); G89.29 Other chronic pain; W10.9XXA Fall (on) (from) unspecified stairs and steps, initial encounter; J45.909 Unspecified asthma, uncomplicated
CPT/HCPCS: 99283; 96372; J1885; J1100

== ENCOUNTER → 2019-12-18 | Outpatient (CLI) | payer MEDICARE, MEDICAID ==
--- NOTE | 2019-12-18 12:05 | RADIOLOGY REPORT (SQ) ---
EXAM DESCRIPTION: FOOT RIGHT COMPLETE COMPLETED DATE/TIME: 12/18/2019 11:37 am REASON FOR STUDY: PAIN IN RIGHT FOOT M79.671 PAIN IN RIGHT FOOT COMPARISON: None. NUMBER OF VIEWS: Three views. TECHNIQUE: AP, lateral and oblique radiographic images acquired of the right foot. LIMITATIONS: None. FINDINGS: MINERALIZATION: Osteopenia. BONES: No acute fracture or dislocation. JOINTS: The normal tarsometatarsal alignment is preserved. SOFT TISSUES: No soft tissue swelling or radiopaque foreign body. OTHER: No other finding. IMPRESSION: No acute osseous abnormality of the right foot. TECHNICAL DOCUMENTATION: JOB ID: [id number] [employer]- All Rights Reserved Reading location - IP/workstation name: [email or web address]
== END ==
LOC: OD 11:25
PROVIDERS: ATTEND Nurse Practitioner Acute Care
DX: M79.671 Pain in right foot (principal)

== ENCOUNTER → 2020-01-01 | Outpatient (CLI) | payer MEDICARE, MEDICAID ==
--- NOTE | 2020-01-01 09:08 | RADIOLOGY REPORT (SQ) ---
EXAM DESCRIPTION: CT ABD/PELVIS NO ORAL OR IV COMPLETED DATE/TIME: 01/01/2020 8:53 am REASON FOR STUDY: BILIRUBINURIA/FLANK PAIN/URINARY URGENCY R10.9 UNSPECIFIED ABDOMINAL PAIN COMPARISON: 04/16/2015 TECHNIQUE: CT scan of the abdomen and pelvis performed without intravenous or oral contrast. Images reviewed with lung, soft tissue, and bone windows. Reconstructed coronal and sagittal MPR images revi ewed. All images stored on PACS. All CT scanners at this facility use dose modulation, iterative reconstruction, and/or weight based d osing when appropriate to reduce radiation dose to as low as reasonably achievable (ALARA). [facility]: Dose Right [facility]: CareDose [facility]: Dose Right [facility]: Teradose 4D [facility]: Smart Technologies RADIATION DOSE: CT Rad equipment meets quality standard of care and radiation dose reduction techniq ues were employed. CTDIvol: 19.2 mGy. DLP: 1142 mGy-cm.mGy. LIMITATIONS: None. FINDINGS: LOWER CHEST: No significant findings. No nodules or infiltrates. NON-CONTRASTED LIVER, SPLEEN, ADRENALS: Evaluation limited by lack of IV contrast. No identified sign ificant masses. PANCREAS: No masses. No peripancreatic inflammatory changes. GALLBLADDER: No identified stones by CT criteria. No inflammatory changes to suggest cholecystitis. RIGHT KIDNEY AND URETER: No suspicious masses. Assessment limited by lack of IV contrast. No signif icant calcifications. No hydronephrosis or hydroureter. LEFT KIDNEY AND URETER: No suspicious masses. Assessment limited by lack of IV contrast. No signifi cant calcifications. No hydronephrosis or hydroureter. AORTA AND RETROPERITONEUM: No aneurysm. No retroperitoneal masses or adenopathy. BOWEL AND PERITONEAL CAVITY: Postsurgical changes in the epigastric region involving the colon. No o bstruction. APPENDIX: Not visualized. PELVIS, BLADDER, AND ABDOMINAL WALL:Thinning of the right lower anterior abdominal wall not significa ntly changed from 2015. No focal hernia. BONES: No significant findings. OTHER: No other significant finding. IMPRESSION: Postsurgical changes as described. No acute findings. COMMENT: Quality ID # [id number]: Final reports with documentation of one or more dose reduction techniques (e.g., Automated exposure control, adjustment of the mA and/or kV according to patient size, use of iterative reconstruction technique) TECHNICAL DOCUMENTATION: JOB ID: [id number] 2010 [employer]- All Rights Reserved Reading location - IP/workstation name: [email or web address]
== END ==
LOC: RAD 08:24
PROVIDERS: ATTEND Urology
DX: R10.9 Unspecified abdominal pain (principal); R92.2 Inconclusive mammogram; R39.15 Urgency of urination
CPT/HCPCS: 74176

== ENCOUNTER 2020-01-24 15:05 | Emergency (ER) | payer MEDICARE, MEDICAID ==
--- NOTE | 2020-01-24 15:37 | ER Document Report ---
ED Extremity Problem, Lower - General TRAVEL OUTSIDE OF THE [place]. IN LAST 30 DAYS: No <CON TURK J - Last Filed: 01/24/20 19:45> <OLESYA CASTELLON Jose Cruz - Last Filed: 01/24/20 23:39> - General Chief Complaint: Leg Pain Stated Complaint: LEG PAIN Time Seen by Provider: 01/24/20 15:29 Primary Care Provider: JAMES RIVERA MD [NO LOCAL MD] - Follow up as needed Notes: CHIEF COMPLAINT: Right lower leg injury HPI: 40-year-old morbidly obese female presenting with right lower leg injury. Patient was walking with her walker when she tripped and rolled over the right foot. Complains of pain to the foot ankle and lower leg. Denies knee or hip injury. Denies other complaints at this time ROS: See HPI - all other systems were reviewed and are otherwise negative Constitutional: no fever Integumentary: no rash Allergy: no hives Musculoskeletal: + extremity pain or swelling Neurological: no numbness/tingling MEDICATIONS: I agree with the patient medications as charted by the RN. ALLERGIES: I agree with the allergies as charted by the RN. PAST MEDICAL HISTORY/PAST SURGICAL HISTORY: Reviewed and agree as charted by RN. SOCIAL HISTORY: Reviewed and agree as charted by RN. FAMILY HISTORY: No significant familial comorbid conditions directly related to patient complaint EXAM: Reviewed vital signs as charted by RN. CONSTITUTIONAL: Alert and oriented and responds appropriately to questions. Well-appearing; well-nourished, mild distress secondary to pain HEAD: Normocephalic; atraumatic EYES: Conjunctivae clear, sclerae non-icteric ENT: normal nose; no rhinorrhea; moist mucous membranes NECK: Supple without meningismus CARD: Capillary refill less than 3 seconds; symmetric distal pulses RESP: Normal chest excursion without splinting or tachypnea ABD/GI: Morbidly obese; non-distended; soft. BACK: The back appears normal EXT: Normal ROM in all joints; patient with pain over the lateral aspect of the right foot as well as the ankle. Patient with significant edema and fat roll to the lower leg making examination of the soft tissues difficult. She has tenderness over the lower aspect of the right leg in the area of the lateral mal leolus. Patient is able to flex and extend the foot without difficulty SKIN: Normal color for age and race; warm; dry; good turgor; no acute lesions noted NEURO: Moves all extremities equally; Motor and sensory function intact PSYCH: The patient's mood and manner are appropriate. Grooming and personal hygiene are appropriate. MDM: 40-year-old morbidly obese female who was ambulatory with a walker when she rolled the right ankle. Will obtain imaging of the lower leg ankle and foot (CON TURK) - Related Data Allergies/Adverse Reactions: latex [Latex] Allergy (Intermediate, Verified 07/13/17 13:21) SKIN IRRITATION, ITCHING Past Medical History - Social History Smoking Status: Never Smoker Family History: DM, Hypertension Patient has suicidal ideation: No Patient has homicidal ideation: No - Past Medical History Cardiac Medical History: Denies: Hx Coronary Artery Disease, Hx Heart Attack, Hx Hypertension Pulmonary Medical History: Reports: Hx Asthma Denies: Hx Bronchitis, Hx COPD, Hx Pneumonia Neurological Medical History: Denies: Hx Cerebrovascular Accident, Hx Seizures Endocrine Medical History: Denies: Hx Diabetes Mellitus Type 2 Renal/ Medical History: Denies: Hx Peritoneal Dialysis GI Medical History: Reports: Hx Gastroesophageal Reflux Disease, Hx Hiatal Hernia Musculoskeletal Medical History: Reports Hx Arthritis Past Surgical History: Reports: Hx Bowel Surgery - hernia, bowel obstruction, colectomy, Hx Cholecystectomy, Hx Gastric Bypass Surgery. Denies: Hx Hysterectomy - Immunizations Immunizations up to date: Yes Hx Diphtheria, Pertussis, Tetanus Vaccination: Yes - < 5 years Hx Pneumococcal Vaccination: 08/13/11 <CON TURK - Last Filed: 01/24/20 19:45> Physical Exam - Vital signs Vitals: Temp Pulse Resp BP Pulse Ox 98.8 F 108 H 20 129/73 H 96 01/24/20 15:18 01/24/20 15:18 01/24/20 15:18 01/24/20 15:18 01/24/20 15:18 Course - Laboratory Result Diagrams: 01/24/20 19:35 01/24/20 19:35 <CON TURK - Last Filed: 01/24/20 19:45> - Laboratory Result Diagrams: 01/24/20 19:35 01/24/20 19:35 <OLESYA CASTELLON - Last Filed: 01/24/20 23:39> - Re-evaluation Re-evalutation: 01/24/20 16:36 Patient with significant deformity and fracture to the right ankle. Discussed with Dr. Nolen, Attending. Have call out to Dr. Ben[facility]tez [facility]. Patient will need sedation and reduction immediately, dorsalis pedis pulse is faintly palpable, capillary refill less than 3 seconds. 01/24/20 17:21 Patient was consciously sedated and we attempted reduction of the dislocated bimalleolar fracture. The patient was held in position until the splint was hard and x-ray was taken but patient is still dislocated, this is an unstable fracture. While I was holding the patient in position I could feel the fracture slide several times. Have left another message for Dr. Benítez the orthopedic surgeon who is in the OR to call back about this patient 01/24/20 17:[address] Benítez the orthopedic surgeon he reviewed the images. Patient will need to be reduced again as it is still out of position. He will come down to perform the reduction himself 01/24/20 18:[address] Benítez orthopedist. Ankle still not completely reduced he is requesting CT of the extremity 01/24/20 19:[address] Nolen. Patient apparently needs to be transferred. Dr. Benítez has indicated that patient will need surgery as the fracture is not reducing properly and she will likely need transfer as he does not have the proper place to do the surgery here. I spoke with Dr. Becker the trauma surgeon at [facility]. He indicates he would like orthopedics consulted prior to excepting the patient, he states patient may need to go to the [facility]. If orthopedics indicates that he can go to his campus he will be the accepting physician for them 01/24/20 19:[address] Cameron, Orthopedics [facility]. Case was discussed. He declines the transfer at this time stating that if the patient is neurovascularly intact she can be managed in an outpatient setting. As this was requested by Dr. Benítez I will call him back to see if he wishes to speak with them directly about the transfer. 01/24/20 19:[address] Benítez orthopedics, discussed with him he indicates that this is actually more of a distal tibial fracture with displacement believes the reduction is fine but patient will need to be admitted because she cannot go home and he cannot perform the surgery here. States of violent declines call him back. 01/24/20 19:45 spoke with Cristopher Bernal [facility]. We have power share the images. She will speak with the orthopedic attending. They may accept the patient directly and she will call back and let us know. If they do accept the patient but want medicine to admit she will have the medicine attending call us to receive report on the patient. Report will be given to the oncoming shift to follow the consultation for transfer (CON TURK) 01/24/20 20:05 Report received. Awaiting call back from [facility] ortho. 01/24/20 21:19 [facility] transfer center called. Ortho attending is currently with critical pt and transfer center will call back once they are available. 01/24/20 21:25 [facility] Transfer Center called back. Ortho attending states they will consult after reviewing images. Spoke to medical attending, Dr. Celia Feldman, who accepted pt for transfer. Will call back once bed is available. 01/24/20 23:01 Ambulance will be here in 30 minutes. Updated pt on this. Pt voices understanding. Continues to be pain free and resting comfortably. 01/24/20 23:38 Transport here to take pt to [facility]. Pt will be given pain medic ation prior to transfer to EMS stretcher. Pt voices understanding and agrees with plan of care. (OLESYA CASTELLON) - Vital Signs Vital signs: Temp Pulse Resp BP Pulse Ox 98.8 F 109 H 24 H 103/52 L 100 01/24/20 15:18 01/24/20 17:25 01/24/20 19:04 01/24/20 18:51 01/24/20 19:04 - Laboratory Laboratory results interpreted by me: 01/24/20 01/24/20 19:35 19:35 Hgb 11.6 L Hct 34.9 L RDW 14.7 H Plt Count 115 L Albumin 3.2 L Procedures - Joint Reduction/Fracture Care Right Ankle Time completed: 17:22 Consent obtained: Yes Conscious sedation: Yes Pre-procedure NV exam: Yes Fracture: Closed - Bimalleolar fracture and dislocation Manipulation comment: With manipulation patient was held until splint was hard but she dislocated Post-procedure NV exam: Yes Post-reduction x-ray: Joint not reduced Complications: Yes - Continue to dislocation, fracture not completely reduced <CON TURK - Last Filed: 01/24/20 19:45> Discharge <CON TURK - Last Filed: 01/24/20 19:45> - Discharge Admitting Provider: Dr. Celia Feldman <OLESYA CASTELLON - Last Filed: 01/24/20 23:39> - Discharge Clinical Impression: Bimalleolar ankle fracture Qualifiers: Encounter type: initial encounter Fracture type: closed Laterality: right Qualified Code(s): S82.841A - Displaced bimalleolar fracture of right lower leg, initial encounter for closed fracture Condition: Stable Disposition: [facility] Referrals: JAMES RIVERA MD [NO LOCAL MD] - Follow up as needed
--- NOTE | 2020-01-24 16:38 | RADIOLOGY REPORT (SQ) ---
EXAM DESCRIPTION: FOOT RIGHT COMPLETE COMPLETED DATE/TIME: 01/24/2020 4:26 pm REASON FOR STUDY: fall COMPARISON: None. NUMBER OF VIEWS: Two views. TECHNIQUE: AP and lateral radiographic images acquired of the right foot. LIMITATIONS: None. FINDINGS: MINERALIZATION: Osteopenia. BONES: No acute fracture or dislocation. No worrisome bone lesions. JOINTS: No effusions. SOFT TISSUES: No soft tissue swelling. No foreign body. OTHER: No other significant finding. IMPRESSION: No evidence of acute injury. TECHNICAL DOCUMENTATION: JOB ID: [id number] 2010 [employer] All Rights Reserved Reading location - IP/workstation name: [email or web address]
--- NOTE | 2020-01-24 16:39 | RADIOLOGY REPORT (SQ) ---
EXAM DESCRIPTION: ANKLE RIGHT COMPLETE COMPLETED DATE/TIME: 01/24/2020 4:25 pm REASON FOR STUDY: fall COMPARISON: 03/17/2010 NUMBER OF VIEWS: Two views. TECHNIQUE: AP and lateral radiographic images acquired of the right ankle. LIMITATIONS: None. FINDINGS: MINERALIZATION: Normal. BONES: Fractures of the medial and lateral malleolar with dislocation. JOINTS: No effusions. SOFT TISSUES: No soft tissue swelling. No foreign body. OTHER: No other significant finding. IMPRESSION: Dislocation of the ankle with bimalleolar fractures. TECHNICAL DOCUMENTATION: JOB ID: [id number] 2010 [employer]- All Rights Reserved Reading location - IP/workstation name: [email or web address]
--- NOTE | 2020-01-24 16:42 | RADIOLOGY REPORT (SQ) ---
EXAM DESCRIPTION: TIBIA FIBULA RIGHT COMPLETED DATE/TIME: 01/24/2020 4:26 pm REASON FOR STUDY: fall COMPARISON: None. NUMBER OF VIEWS: Two views. TECHNIQUE: Two radiographic images acquired of the right tibia and fibula to include the knee and an kle in at least one projection. LIMITATIONS: None. FINDINGS: MINERALIZATION: Normal. BONES: Distal tib-fib fracture and dislocation at the tibiotalar joint. The medial and lateral malle alexandra alignment is preserve with significant medial displacement of the talus in relation to the distal tibia and fibula measuring approximately 3.6 cm. No additional fractures identified. Degenerative changes about the knee and ankle. SOFT TISSUES: Lower leg soft tissue swelling and edema. Morbid obesity. Surgical clips overlie medi al thigh. OTHER: Degenerative changes at the knee and ankle. IMPRESSION: 1. Distal tib-fib fracture and dislocation. Medial and lateral malleoli appear aligne d with significant medial displacement of the talus in relation to the distal tib-fib measuring appro ximately 3.6 cm. 2. Obesity. TECHNICAL DOCUMENTATION: JOB ID: [id number] 2010 [employer] All Rights Reserved Reading location - IP/workstation name: [email or web address]
[2020-01-24] MEDS ORDERED: PROPOFOL INJ 200 MG/20 ML VIAL IV ONE ×3 (16:54→17:39)
[2020-01-24] MEDS ORDERED: FENTANYL CITRATE INJ/PF 100 MCG/2 ML AMPUL IV ONE ×3 (16:54→23:37)
--- NOTE | 2020-01-24 17:47 | RADIOLOGY REPORT (SQ) ---
EXAM DESCRIPTION: ANKLE RIGHT AP/LATERAL COMPLETED DATE/TIME: 01/24/2020 5:27 pm REASON FOR STUDY: ankle fx post reduction (JUST AP) COMPARISON: 01/24/2020 NUMBER OF VIEWS: One view TECHNIQUE: AP radiographic images acquired of the right ankle. LIMITATIONS: None. FINDINGS: MINERALIZATION: Normal. BONES: There is only partial reduction of the tibiotalar dislocation. Bimalleolar fracture. JOINTS: No effusions. SOFT TISSUES: No soft tissue swelling. No foreign body. OTHER: No other significant finding. IMPRESSION: Incomplete reduction of the dislocation. TECHNICAL DOCUMENTATION: JOB ID: [id number] 2010 [employer]- All Rights Reserved Reading location - IP/workstation name: [email or web address]
--- NOTE | 2020-01-24 18:47 | RADIOLOGY REPORT (SQ) ---
EXAM DESCRIPTION: ANKLE RIGHT AP/LATERAL COMPLETED DATE/TIME: 01/24/2020 6:29 pm REASON FOR STUDY: POST REDUCTION 2 COMPARISON: 01/24/2020 NUMBER OF VIEWS: One view. TECHNIQUE: AP radiographic images acquired of the right ankle. LIMITATIONS: None. FINDINGS: Incomplete reduction of the right ankle fracture/dislocation. No significant reduction wh en compared to previous post reduction film. Again noted are the posterior malleolar and fibular fra ctures. The talus is still significantly medially dislocated in relation to the tibia. IMPRESSION: Incomplete reduction of the right ankle fracture-dislocation TECHNICAL DOCUMENTATION: JOB ID: [id number] 2010 [employer]- All Rights Reserved Reading location - IP/workstation name: [email or web address]
--- NOTE | 2020-01-24 19:15 | PDOC CONSULTATION ---
Consultation Consult Date: 01/24/20 Attending physician:: ARON FLOWERS Provider Consulted: [facility] Consult reason:: Right ankle displaced pilon fracture History of Present Illness Admission Date/PCP: 01/24/2020 Patient complains of: Right ankle pain and deformity History of Present Illness: PHIL PENNINGTON is a 40 year old female morbidly obese female who requires the use of a walker for normal daily ambulation. The patient reports injuring her ankle several days ago. While walking today she rolled over her ankle and was immediately unable to ambulate. She was brought to the emergency department by ambulance complaining of pain and deformity of the right ankle. Past Medical History Cardiac Medical History: Denies: Coronary Artery Disease, Myocardial Infarction, Hypertension Pulmonary Medical History: Reports: Asthma Denies: Bronchitis, Chronic Obstructive Pulmonary Disease (COPD), Pneumonia Neurological Medical History: Denies: Seizures Endocrine Medical History: Denies: Diabetes Mellitus Type 2 GI Medical History: Reports: Gastroesophageal Reflux Disease, Hiatal Hernia Musculoskeltal Medical History: Reports: Arthritis Hematology: Reports: Anemia - IRON DEFICIENCY ANEMA Past Surgical History Past Surgical History: Reports: Cholecystectomy, Gastric Bypass Surgery Denies: Hysterectomy Social History Smoking Status: Never Smoker Family History Family History: DM, Hypertension Parental Family History Reviewed: No Children Family History Reviewed: NA Sibling(s) Family History Reviewed.: NA Medication/Allergy Home Medications: Omeprazole [Prilosec] 40 mg PO DAILY 11/24/11 Albuterol Sulfate [Proair Hfa Inhalation Aerosol 8.5 gm Mdi] 1 puff IH Q4 PRN 01/26/16 Ciclopirox Olamine [Loprox Cream] 1 applic TP BID 01/26/16 Diclofenac Sodium [Pennsaid] 112 gm TP ASDIR PRN 01/26/16 Duloxetine HCl [Cymbalta] 60 mg PO BID 01/26/16 Gabapentin [Gralise] 3 tab PO QHS 01/26/16 Lactulose 10 gm PO ASDIR PRN 01/26/16 Pramoxine HCl/Ammonium Lactate [Amlactin Ap Cream] 140 gm TP ASDIR PRN 01/26/16 Tapentadol HCl [Nucynta] 75 mg PO QID 01/26/16 Topiramate [Topamax 100 Mg Tablet] 100 mg PO TID 01/26/16 Chlorthalidone [Chlorthalidone 25 mg Tablet] 0.5 tab PO DAILY 06/06/16 Tizanidine HCl [Zanaflex] 4 mg PO TID PRN 06/06/16 Promethazine HCl [Phenergan 25 mg Tablet] 25 - 50 mg PO ASDIR PRN #12 tablet 07/09/16 Tramadol HCl 50 mg PO BID #14 tablet 07/09/16 Tramadol HCl [Ultram] 50 mg PO BID #14 tablet 07/09/16 Sulfamethoxazole/Trimethoprim [Bactrim Ds Tablet] 1 each PO BID #20 tablet 06/02/17 Allergies/Adverse Reactions: latex [Latex] Allergy (Intermediate, Verified 07/13/17 13:21) SKIN IRRITATION, ITCHING Review of Systems Cardiovascular: ABSENT: chest pain, dyspnea on exertion, edema, orthropnea, palpitations Respiratory: ABSENT: cough, hemoptysis Gastrointestinal: ABSENT: abdominal pain, constipation, diarrhea, hematemesis, hematochezia, nausea, vomiting Musculoskeletal: PRESENT: as per HPI Neurological: PRESENT: as per HPI Physical Exam Vital Signs: Temp Pulse Resp BP Pulse Ox 98.8 F 109 H 24 H 107/69 100 01/24/20 15:18 01/24/20 17:25 01/24/20 17:25 01/24/20 17:25 01/24/20 17:25 Intake & Output 01/23/20 01/24/20 01/25/20 06:59 06:59 06:59 Weight 188.8 kg General appearance: PRESENT: no acute distress Head exam: PRESENT: atraumatic Neck exam: PRESENT: full ROM Respiratory exam: PRESENT: unlabored Cardiovascular exam: PRESENT: RRR GI/Abdominal exam: PRESENT: soft Rectal exam: PRESENT: deferred Extremities exam: PRESENT: pedal edema, other Musculoskeletal exam: PRESENT: other - There is a deformity of the right ankle. The patient is able to move her toes. Sensation is intact to touch. Pulses are not palpable due to severe obesity. Results Impressions: Foot X-Ray 01/24/20 15:34 IMPRESSION: No evidence of acute injury. Tibia/Fibula X-Ray 01/24/20 15:34 IMPRESSION: 1. Distal tib-fib fracture and dislocation. Medial and lateral malleoli appear aligned with significant medial displacement of the talus in relation to the distal tib-fib measuring approximately 3.6 cm. 2. Obesity. Ankle X-Ray 01/24/20 17:11 IMPRESSION: Incomplete reduction of the dislocation. Status: Image reviewed by me - CT scan of the right ankle independently reviewed. There is a comminuted fracture on the medial aspect of the distal tibia. Tibiotalar reduction is adequate. Assessment & Plan - Time Time Spent: 30 to 50 Minutes - Plan Summary Plan Summary: I have been consulted by the emergency room staff to assist in a manipulative reduction of an unstable distal tibia articular fracture. The emergency room staff had previously performed a reduction which did not adequately realign the joint. Under conscious sedation administered by the emergency room physician, I performed a manipulative reduction and splinting. Postreduction CT scan demonstrates adequate reduction in terms of protection of the soft tissue against further injury. The CT scan demonstrates a comminuted articular fracture on the medial aspect of the distal tibia. I have discussed with the emergency room physician that this patient would be better treated given the nature of her injury and severe obesity by an orthopedic traumatologist. I do understand that many emergency departments are on diversion due to the current pandemic coronavirus. I have discussed with the emergency room physician that if she is unable to secure a transfer to a higher level of care, I would be available to perform a simple temporizing external fixation of the extremity although this is not currently necessary as the postreduction radiographs demonstrate adequate alignment.
--- NOTE | 2020-01-24 19:35 | RADIOLOGY REPORT (SQ) ---
EXAM DESCRIPTION: CT RT LOWER EXTREMITY WITHOUT COMPLETED DATE/TIME: 01/24/2020 6:47 pm REASON FOR STUDY: ankle fracture COMPARISON: None. EXAM PARAMETERS: TECHNIQUE:Axial imaging performed through the right ankle with reformatted coronal and sagittal imaging windowed for bone and soft tissues. Images saved to PACS. 3D IMAGING: Were 3D images as MIP, SSD, or volume rendering performed at the work station? No. All CT scanners at this facility use dose modulation, iterative reconstruction, and/or weight based d osing when appropriate to reduce radiation dose to as low as reasonably achievable (ALARA). [facility]: Dose Right [facility]: [employer] [facility]: Dose Right [facility]: Teradose 4D [facility]: Smart zappit RADIATION DOSE: CT Rad equipment meets quality standard of care and radiation dose reduction techniqu es were employed. CTDIvol: 4.1 mGy. DLP: 94 mGy-cm. mGy. LIMITATIONS: None. FINDINGS: SOFT TISSUES: No obvious swelling or foreign body. BONES: Images show a mildly comminuted vertical fracture through the medial malleolus. There is a tr ansverse fracture of the lateral malleolus. There is lateral subluxation of the tibia on the talus. MINERALIZATION: Normal. OTHER: No other significant finding. IMPRESSION: Bimalleolar fracture with mild lateral subluxation of the tibia. TECHNICAL DOCUMENTATION: JOB ID: [id number] [facility] [id number]: Final reports with documentation of one or more dose reduction techniques (e.g., Automate d exposure control, adjustment of the mA and/or kV according to patient size, use of iterative recons truction technique) 2010 [employer]- All Rights Reserved Reading location - IP/workstation name: [email or web address]
[2020-01-24 19:55] LABS: ABSOLUTE EOSINOPHILS # (AUTO) 0.1 10^3/uL (0.0-0.6); ABSOLUTE LYMPHOCYTES (AUTO) 1.7 10^3/uL (0.5-4.7); ABSOLUTE MONOCYTES (AUTO) 0.8 10^3/uL (0.1-1.4); ABSOLUTE NEUT (AUTO) 4.1 10^3/uL (1.7-8.2); BASOPHILS % (AUTO) 0.6 % (0-2); HEMATOCRIT 34.9 % (36.0-47.0); HEMOGLOBIN 11.6 g/dL (12.0-15.5); LYMPHOCYTES % (AUTO) 25.7 % (13-45); MEAN CORPUSCULAR HEMOGLOBIN 30.7 pg (27.0-33.4); MEAN CORPUSCULAR HGB CONC 33.3 g/dL (32.0-36.0); MEAN CORPUSCULAR VOLUME 92 fl (80-97); MONOCYTES % (AUTO) 11.5 % (3-13); PLATELET COUNT 115 10^3/uL (150-450); RED BLOOD COUNT 3.78 10^6/uL (3.72-5.28); RED CELL DISTRIBUTION WIDTH 14.7 % (11.5-14.0); SEGMENTED NEUTROPHILS % (AUTO) 61.2 % (42-78); TOTAL CELLS COUNTED % (AUTO) 100 %; WHITE BLOOD COUNT 6.7 10^3/uL (4.0-10.5)
[2020-01-24 20:05] LABS: INTERNATIONAL RATION (INR) 1.12; PROTHROMBIN TIME 14.5 SEC (11.4-15.4)
[2020-01-24 20:21] LABS: ALBUMIN 3.2 g/dL (3.5-5.0); ALKALINE PHOSPHATASE 120 U/L (38-126); ANION GAP 5 (5-19); ASPARTATE AMINO TRANSFERASE 18 U/L (14-36); BILIRUBIN,DIRECT 0.2 mg/dL (0.0-0.4); BILIRUBIN,TOTAL 0.6 mg/dL (0.2-1.3); BLOOD UREA NITROGEN 10 mg/dL (7-20); CALCIUM 8.5 mg/dL (8.4-10.2); CARBON DIOXIDE 27 mmol/L (22-30); CHLORIDE 106 mmol/L (98-107); GLUCOSE 86 mg/dL (75-110); POTASSIUM 3.7 mmol/L (3.6-5.0); TOTAL PROTEIN 6.3 g/dL (6.3-8.2)
[2020-01-24 23:52] VITALS: BP 111/70
== END 2020-01-24 23:52 | disposition short-term general hospital (02) ==
LOC: ER 15:05
PROC: 0QSGXZZ Reposition Right Tibia, External Approach (ICD-10-PCS; principal; 2020-01-24)
DX: S82.841A Displaced bimalleolar fracture of right lower leg, initial encounter for closed fracture (principal); M79.604 Pain in right leg; M79.671 Pain in right foot; M25.571 Pain in right ankle and joints of right foot; W18.40XA Slipping, tripping and stumbling without falling, unspecified, initial encounter; J45.909 Unspecified asthma, uncomplicated
CPT/HCPCS: 96376; 99285; 99152; 96374; 36415; 85025; 85610; 80053; 73600; 73610; 73630; 73590; 73700; 27825; J3010; J2704

== ENCOUNTER → 2020-08-28 | Outpatient (CLI) | payer MEDICARE, MEDICAID ==
--- NOTE | 2020-08-28 12:28 | WOMENS IMAGING REPORT ---
EXAM DESCRIPTION: 3D SCREENING MAMMO BILAT IMAGES COMPLETED DATE/TIME: 08/28/2020 10:39 am REASON FOR STUDY: Z12.31 ENCNTR SCREEN MAMMOGRAM FOR MALIGNANT NEOPLASM OF BREAST Z12.31 ENCNTR SCR EEN MAMMOGRAM FOR MALIGNANT NEOPLASM OF [place]TE. Right-sided Port-A-Cath. COMPARISON: 04/10/2018, 01/10/2017 EXAM PARAMETERS: Standard craniocaudal and mediolateral oblique views of each breast recorded using digital acquisition and breast tomosynthesis. Read with the assistance of CAD. .[facility] - [employer]ing Machine Operator Version 9.2 LIMITATIONS: None. FINDINGS: RIGHT BREAST MASSES: No suspicious masses. CALCIFICATIONS: No new or suspicious calcifications. ARCHITECTURAL DISTORTION: None. ASYMMETRY: None noted. OTHER: There is diffuse skin thickening involving the entire right breast with diffuse edema, new fro m prior exam. LEFT BREAST MASSES: No suspicious masses. CALCIFICATIONS: No new or suspicious calcifications. ARCHITECTURAL DISTORTION: None. ASYMMETRY: None noted. OTHER: No skin thickening or breast edema. IMPRESSION: Diffuse skin thickening involving the entire right breast with diffuse subcutaneous tin a. This may be related to asymmetric subcutaneous edema, however cannot entirely exclude inflammator y breast cancer. Further evaluation with diagnostic mammogram and ultrasound are recommended. 0 Incomplete: Needs Additional Imaging Evaluation and/or prior Mammograms for Comparison. BREAST DENSITY: b. There are scattered areas of fibroglandular density. BIRAD: ASSESSMENT: 0 Incomplete: Needs Additional Imaging Evaluation and/or prior Mammograms for C omparison. RECOMMENDATION: RECOMMENDED FOLLOW-UP: Right breast diagnostic mammogram and ultrasound. The patient will be contacted for additional imaging. COMMENT: The patient has been notified of the results by letter per SA requirements. Additional no tification policies are in place for contacting patient with suspicious or incomplete findings. Quality ID #225: The [employer] recommends an annual screening mammogram for women aged 40 years or over. This facility utilizes a reminder system to ensure that all patients receive reminder letters, and/or direct phone calls for appointments. This includes reminders for routine scr eening mammograms, diagnostic mammograms, or other Breast Imaging Interventions when appropriate. Th is patient will be placed in the appropriate reminder system. TECHNICAL DOCUMENTATION: FINDING NUMBER: (1) ASSESSMENT: (1) JOB ID: [id number] 2010 [employer]- All Rights Reserved Reading location - IP/workstation name: [email or web address]
== END ==
LOC: WI 10:30
PROVIDERS: ATTEND Nurse Practitioner Family
DX: Z12.31 Encounter for screening mammogram for malignant neoplasm of breast (principal); N64.59 Other signs and symptoms in breast
CPT/HCPCS: 77063; 77067

== ENCOUNTER → 2020-09-09 | Outpatient (CLI) | payer MEDICARE, MEDICAID ==
--- NOTE | 2020-09-09 10:40 | WOMENS IMAGING REPORT ---
EXAM DESCRIPTION: RIGHT DIAGNOSTIC MAMMO W/CAD; U/S BREAST UNILAT LIMITED IMAGES COMPLETED DATE/TIME: 09/09/2020 9:55 am; 09/09/2020 10:22 am REASON FOR STUDY: R92.2 INCONCLUSIVE MAMMOGRAM; R92.2 R92.2 INCONCLUSIVE MAMMOGRAM COMPARISON: 08/28/2020 and 04/10/2018. EXAM PARAMETERS: True lateral image acquired. LIMITATIONS: None. FINDINGS: BREAST LATERALITY: right MASSES: No suspicious masses. CALCIFICATIONS: No new or suspicious calcifications. ARCHITECTURAL DISTORTION: None. ASYMMETRY: None noted. OTHER: Diffuse skin thickening. BREAST ULTRASOUND: TECHNIQUE: Static and dynamic grayscale images acquired of the right breast in the specific areas of clinical/mammographic concern. Selected color Doppler images recorded. ELASTOGRAPHY PERFORMED: No. LIMITATIONS: None. FINDINGS: MASS: Diffuse skin thickening. No mass identified. Normal glandular tissue. ELASTOGRAPHY CHARACTERISTICS:Not applicable. OTHER: No other significant finding. IMPRESSION: Diffuse skin thickening. No focal mass identified on mammography or ultrasound. Clinic al correlation is required. Diffuse skin thickening could be due to systemic illness resulting in ed kaylin or inflammation. An inflammatory carcinoma with involvement of the skin and lymphatics cannot be excluded. If there is no clinical explanation for the patient's condition, then a skin biopsy may b e necessary. BREAST DENSITY: b. There are scattered areas of fibroglandular density. BIRAD: ASSESSMENT: 0 Incomplete: See above discussion for clinical correlation. RECOMMENDATION: RECOMMENDED FOLLOW UP: See above discussion. SPECIFIC INTERVENTION/IMAGING/CONSULTATION RECOMMENDED:See above discussion. COMMUNICATION:The imaging findings were not discussed with the patient. Her referring provider has be en notified of the findings. COMMENT: The patient has been notified of the results by letter per SA requirements. Additional no tification policies are in place for contacting patient with suspicious or incomplete findings. Quality ID #225: The [employer] recommends an annual screening mammogram for women aged 40 years or over. This facility utilizes a reminder system to ensure that all patients receive reminder letters, and/or direct phone calls for appointments. This includes reminders for routine scr eening mammograms, diagnostic mammograms, or other Breast Imaging Interventions when appropriate. Th is patient will be placed in the appropriate reminder system. TECHNICAL DOCUMENTATION: FINDING NUMBER: (1) ASSESSMENT: (1) JOB ID: [id number] [employer]- All Rights Reserved Reading location - IP/workstation name: [email or web address]
== END ==
LOC: WI 09:02
PROVIDERS: ATTEND Nurse Practitioner Acute Care
DX: R92.2 Inconclusive mammogram (principal)
CPT/HCPCS: 76642; 77065

== ENCOUNTER 2020-12-10 08:35 | Emergency (ER) | payer MEDICARE, MEDICAID ==
[2020-12-10] MEDS ORDERED: MORPHINE SULFATE 10 MG/ML INJ IV ONE (09:18)
[2020-12-10] MEDS ORDERED: ONDANSETRON HCL INJ/PF 4 MG/2 ML SDV IV ONE (09:18)
--- NOTE | 2020-12-10 09:30 | ER Document Report ---
ED General - General Chief Complaint: Vomiting Stated Complaint: ABDOMINAL PAIN,VOMITING Time Seen by Provider: 12/10/20 09:03 Primary Care Provider: STEPHANIE CRAIG MD [Primary Care Provider] - Follow up as needed TRAVEL OUTSIDE OF THE [place] IN LAST 30 DAYS: No - HPI Notes: Patient is a 40 y/o female who presents with an area of redness and swelling to her abdomen. Patient reports tenderness to the area which is located in the midepigastric region. Patient states she first noticed a bump to the area that was draining green pus. She states she picked at it and then the area began to swell, became red and painful. She reports nausea and vomiting but denies fever, chest pain, shortness of breath and diarrhea. She has a surgical hx of hernia repair, gastric bypass and cholecystectomy. She denies any medical hx including HTN and DM. - Related Data Allergies/Adverse Reactions: latex [Latex] Allergy (Intermediate, Verified 12/10/20 11:02) SKIN IRRITATION, ITCHING Past Medical History - General Information source: Patient - Social History Smoking Status: Unknown if Ever Smoked Family History: DM, Hypertension - Past Medical History Cardiac Medical History: Denies: Hx Coronary Artery Disease, Hx Heart Attack, Hx Hypertension Pulmonary Medical History: Reports: Hx Asthma Denies: Hx Bronchitis, Hx COPD, Hx Pneumonia Neurological Medical History: Denies: Hx Cerebrovascular Accident, Hx Seizures Endocrine Medical History: Denies: Hx Diabetes Mellitus Type 2 Renal/ Medical History: Denies: Hx Peritoneal Dialysis GI Medical History: Reports: Hx Gastroesophageal Reflux Disease, Hx Hiatal Hernia Musculoskeletal Medical History: Reports Hx Arthritis Past Surgical History: Reports: Hx Bowel Surgery - hernia, bowel obstruction, colectomy, Hx Cholecystectomy, Hx Gastric Bypass Surgery. Denies: Hx Hysterectomy - Immunizations Immunizations up to date: Yes Hx Diphtheria, Pertussis, Tetanus Vaccination: Yes - < 5 years Hx Pneumococcal Vaccination: 08/13/11 Review of Systems - Review of Systems Constitutional: No symptoms reported EENT: No symptoms reported Cardiovascular: No symptoms reported Respiratory: No symptoms reported Gastrointestinal: See HPI Genitourinary: No symptoms reported Female Genitourinary: No symptoms reported Musculoskeletal: No symptoms reported Skin: See HPI Hematologic/Lymphatic: No symptoms reported Neurological/Psychological: No symptoms reported Physical Exam - Vital signs Vitals: Temp Pulse Resp BP Pulse Ox 98.8 F 122 H 20 150/116 H 98 12/10/20 08:39 12/10/20 08:39 12/10/20 08:39 12/10/20 08:39 12/10/20 08:39 - Notes Notes: PHYSICAL EXAMINATION: VITALS: Vitals reviewed -tachycardic and hypertensive. GENERAL: Morbidly obese, -[place] female that appears nontoxic but is in mild distress. HEAD: Atraumatic, normocephalic. EYES: Pupils equal, round, and reactive to light, extraocular movements intact, sclera anicteric, conjunctiva are normal. ENT: Nares patent. Moist mucous membranes. Oropharynx clear without exudates. NECK: Normal range of motion, supple without lymphadenopathy. LUNGS: Breath sounds clear to auscultation bilaterally and equal. No wheezes, rales, or rhonchi. HEART: Tachycardia with regular rhythm without murmurs. ABDOMEN: 7cm x 10cm area of induration with a 4cm x 6cm area of erythema to the mid epigastric region of the abdomen. Area is tender to palpation with fluctuance. Small scab noted in the area that has no active drainage. Soft a bdomen with normoactive bowel sounds. No guarding, no rebound. No masses appreciated. EXTREMITIES: Normal range of motion, no pitting or edema. No cyanosis. NEUROLOGICAL: No focal neurological deficits. Moves all extremities spontaneously and on command. PSYCH: Normal mood, normal affect. SKIN: Warm, Dry, normal turgor, no rashes or lesions noted. Course - Re-evaluation Re-evalutation: Patient is a 40-year-old female who presents with an area of cellulitis to her abdomen that worsened in the past day. Patient had a draining pustule 1 week ago that she continued to pick at. Vitals reviewed and patient is tachycardic with a heart rate of 1.2 and hypertensive with a BP of 150/116. On exam, 7cm x 10cm area of induration with a 4cm x 6cm area of erythema to the mid epigastric region of the abdomen. Area is tender to palpation with fluctuance. Patient reports significant pain and nausea, 4 mg IV morphine and 4 mg IV Zofran ordered. CBC shows a normal WBC of 7.7. CMP shows an elevated Alk Phos of 203 but pa tient' is typically elevated at baseline. Labwork is otherwise unremarkable. Patient presents with symptoms most consistent with an acute cellulitis. Vitals within normal limits. Patient does not meet sepsis criteria is overall very well in appearance. Exam and history are not consistent with DVT. Patient will be started on coverage for both staph and strep. I consulted my supervising physician, Dr. Montesinos, concerning this patient and he recommends prescribing Bactrim DS 2 tablets BID for 7 days. At this time will discharge with return precautions and follow-up recommendations. Verbal discharge instructions given a the bedside and opportunity for questions given. Medication warnings reviewed. Patient is in agreement with this plan and has verbalized understanding of return precautions and the need for primary care follow-up in the next 24-72 hours. - Vital Signs Vital signs: Temp Pulse Resp BP Pulse Ox 98.8 F 108 H 18 148/98 H 97 12/10/20 08:39 12/10/20 12:43 12/10/20 12:43 12/10/20 12:43 12/10/20 12:43 - Laboratory Results Result Diagrams: 12/10/20 10:07 12/10/20 10:07 Laboratory Results Interpreted: 12/10/20 12/10/20 10:07 10:07 RDW 15.4 H Lymph % (Auto) 8.6 L Seg Neutrophils % 84.7 H Sodium 136.5 L Glucose 137 H Alkaline Phosphatase 203 H Total Protein 8.4 H Critical Laboratory Results Reviewed: No Critical Results - Radiology Results Critical Radiology Results Reviewed: No Critical Results Discharge - Discharge Clinical Impression: Cellulitis, abdominal wall Obesity Qualifiers: Obesity type: unspecified obesity type Obesity classification: adult class 3 (BMI >= 40) Serious obesity comorbidity presence: unspecified whether serious comorbidity present Body mass index: BMI 70 or greater Qualified Code(s): E66.01 - Morbid (severe) obesity due to excess calories Abdominal pain Qualifiers: Abdominal location: generalized Qualified Code(s): R10.84 - Generalized abdominal pain Vomiting Qualifiers: Vomiting type: unspecified Vomiting Intractability: non-intractable Nausea presence: with nausea Qualified Code(s): R11.2 - Nausea with vomiting, unspecified Condition: Stable Disposition: HOME, SELF-CARE Instructions: MRSA Cellulitis ([facility]), Trimethoprim-Sulfa ([facility]) Additional Instructions: Hyperglycemia (High Blood Sugar) You have an abnormally high blood sugar. Not all high blood sugar requires long-term treatment. High blood sugar can be due to medications, , or the stress of illness. (These cases are "borderline diabetes.") If the doctor feels your high blood sugar might resolve with time, you may not require treatment now. It's very important that you follow through, to see if the blood sugar returns to normal levels. Uncontrolled high blood sugar leads to early heart disease, strokes, nerve damage, eye damage, and kidney damage. Call the physician if there is faintness, excess sleepiness, or very rapid breathing. Prescriptions: Ondansetron [Zofran Odt 4 mg Tablet] 1 - 2 tab PO Q4HP PRN #15 tab.rapdis PRN Reason: Sulfamethoxazole/Trimethoprim [Sulfamethoxazole-Tmp Ds Tablet] 2 tab PO BID 7 Days #28 tablet Referrals: STEPHANIE CRAIG MD [Primary Care Provider] - Follow up as needed
[2020-12-10 10:29] LABS: ABSOLUTE LYMPHOCYTES (AUTO) 0.6 10^3/uL (0.5-4.7); ABSOLUTE MONOCYTES (AUTO) 0.5 10^3/uL (0.1-1.4); BASOPHILS % (AUTO) 0.3 % (0-2); HEMATOCRIT 38.3 % (36.0-47.0); HEMOGLOBIN 12.3 g/dL (12.0-15.5); LYMPHOCYTES % (AUTO) 8.6 % (13-45); MEAN CORPUSCULAR HEMOGLOBIN 28.9 pg (27.0-33.4); MEAN CORPUSCULAR HGB CONC 32.2 g/dL (32.0-36.0); MEAN CORPUSCULAR VOLUME 90 fl (80-97); MONOCYTES % (AUTO) 6.4 % (3-13); PLATELET COUNT 161 10^3/uL (150-450); RED BLOOD COUNT 4.26 10^6/uL (3.72-5.28); RED CELL DISTRIBUTION WIDTH 15.4 % (11.5-14.0); SEGMENTED NEUTROPHILS % (AUTO) 84.7 % (42-78); TOTAL CELLS COUNTED % (AUTO) 100 %; WHITE BLOOD COUNT 7.1 10^3/uL (4.0-10.5)
[2020-12-10 10:51] LABS: ALBUMIN 4.1 g/dL (3.5-5.0); ALKALINE PHOSPHATASE 203 U/L (38-126); ANION GAP 8 (5-19); ASPARTATE AMINO TRANSFERASE 27 U/L (14-36); BILIRUBIN,DIRECT 0.3 mg/dL (0.0-0.4); BILIRUBIN,TOTAL 0.5 mg/dL (0.2-1.3); BLOOD UREA NITROGEN 9 mg/dL (7-20); CALCIUM 9.4 mg/dL (8.4-10.2); CARBON DIOXIDE 24 mmol/L (22-30); CHLORIDE 105 mmol/L (98-107); GLUCOSE 137 mg/dL (75-110); POTASSIUM 4.1 mmol/L (3.6-5.0); TOTAL PROTEIN 8.4 g/dL (6.3-8.2)
[2020-12-10 12:44] VITALS: BP 148/98
== END 2020-12-10 12:41 | disposition home or self-care (01) ==
LOC: ER 08:35
DX: L03.311 Cellulitis of abdominal wall (principal); R11.2 Nausea with vomiting, unspecified; R10.84 Generalized abdominal pain; R74.8 Abnormal levels of other serum enzymes; E66.01 Morbid (severe) obesity due to excess calories; Z68.45 Body mass index [BMI] 70 or greater, adult; J45.909 Unspecified asthma, uncomplicated; Z98.84 Bariatric surgery status; Z90.49 Acquired absence of other specified parts of digestive tract; Z91.040 Latex allergy status
CPT/HCPCS: 99284; 96374; 96375; 36415; 87040; 83690; 84703; 85025; 87077; 80053; 87150 ×26; J2270; J2405